=== PATIENT | male | born 1960 ===

== ENCOUNTER 2018-09-22 09:40 | Observation (INO) | payer MEDICAID, MEDICARE ==
[2018-09-22 09:42] VITALS: BMI 54.3
--- NOTE | 2018-09-22 09:56 | ED PDOC ---
Arrival/HPI - General Chief Complaint: Headache Time Seen by Provider: 09/22/18 09:46 Historian: Patient - History of Present Illness Narrative History of Present Illness (Text): 09/22/18 09:57 58 y/o male with PMH of CAD, CHF (s/p ICD) presents to the ED c/o headache x 3 days and worsening SOB for the last few weeks. SOB is worse when lying flat and associated with weight gain and increased peripheral lower extremity edema. H eadache is dull, located in the occipital region, relieved with tylenol. Pt has not taken any medication for headache today. Also c/o bloody drainage from left ear with associated pain for the last day. Pt states he is compliant with his home medications and took them this morning. Denies fever, chills, chest pain, cough, nausea, vomiting, abdominal pain, diarrhea, constipation, vision changes, dizziness, neck pain/stiffness, numbness, weakness, parethesias, or any other associated complaints. PMD: Dr. Mike Orantes Past Medical History - Provider Review Nursing Documentation Reviewed: Yes - Infectious Disease Hx of Infectious Diseases: None - Cardiac Hx Congestive Heart Failure: Yes Hx Hypertension: Yes Hx Pacemaker: Yes (+defibrillator) Hx Peripheral Edema: Yes - Pulmonary Hx Sleep Apnea: Yes (+bipap -- but not using) - Neurological Hx Neurological Disorder: Yes Hx Syncope: Yes - HEENT Hx HEENT Disorder: No - Renal Hx Renal Disorder: No - Endocrine/Metabolic Hx Endocrine Disorders: No - Hematological/Oncological Hx Blood Disorders: No - Integumentary Hx Dermatological Disorder: No Hx Cellulitis: Yes (left leg) - Musculoskeletal/Rheumatological Hx Arthritis: Yes - Gastrointestinal Hx Gall Bladder Disease: Yes - Genitourinary/Gynecological Hx Genitourinary Disorders: No - Psychiatric Hx Psychophysiologic Disorder: No Hx Substance Use: No - Surgical History Hx Cholecystectomy: (STONES REMOVED) Other/Comment: L foot sx. Pacemaker. Vein stripping. Hemorrhoids - Anesthesia Hx Anesthesia: Yes Hx Anesthesia Reactions: No Hx Malignant Hyperthermia: No - Suicidal Assessment Feels Threatened In Home Enviroment: No Family/Social History - Physician Review Nursing Documentation Reviewed: Yes Family/Social History: No Known Family HX Smoking Status: Never Smoked Hx Alcohol Use: Yes (Socially) Frequency of alcohol use: Socially Hx Substance Use: No Allergies/Home Meds Allergies/Adverse Reactions: Allergies No Known Allergies Allergy (Verified 09/22/18 14:12) Home Medications: Home Meds Medication Instructions Recorded Confirmed Aspirin [Ecotrin] 81 mg PO DAILY 08/30/15 09/22/18 Carvedilol [Coreg] 25 mg PO BID 08/30/15 09/22/18 Enalapril Maleate 5 mg PO DAILY 08/30/15 09/22/18 Furosemide [Lasix] 20 mg PO DAILY 08/30/15 09/22/18 Review of Systems - Review of Systems Constitutional: Fatigue. absent: Fevers Eyes: Normal. absent: Vision Changes ENT: Other (left ear bleeding). absent: Hearing Changes, Tinnitus, Sinus Congestion Respiratory: SOB. absent: Cough, Sputum, Wheezing Cardiovascular: Normal. absent: Chest Pain, Palpitations, Syncope Gastrointestinal: Normal. absent: Abdominal Pain, Nausea, Vomiting Genitourinary Male: Normal. absent: Dysuria, Frequency Musculoskeletal: Normal. absent: Back Pain, Neck Pain Skin: Normal. absent: Rash Neurological: Headache. absent: Dizziness, Focal Weakness, Facial Droop, Disequilibrium Endocrine: Normal. absent: Diaphoresis Physical Exam Vital Signs Reviewed: Yes Vital Signs Temp Pulse Resp BP Pulse Ox 09/22/18 09:48 97.3 F L 60 18 189/93 H 95 Temperature: Afebrile Blood Pressure: Hypertensive Pulse: Regular Respiratory Rate: Normal Appearance: Positive for: Well-Appearing, Non-Toxic, Comfortable, Other (Morbidly Obese) Pain Distress: None Mental Status: Positive for: Alert and Oriented X 3 - Systems Exam Head: Present: Atraumatic, Normocephalic Pupils: Present: PERRL Extroacular Muscles: Present: EOMI Conjunctiva: Present: Normal Ears: Present: NORMAL TM, Other (Small amount of dried blood in left canal). No: Erythema, TM Bulging, Fluid, TM Perf Mouth: Present: Moist Mucous Membranes Pharnyx: Present: Normal Neck: Present: Normal Range of Motion. No: Meningeal Signs Respiratory/Chest: Present: Decreased Breath Sounds (bilaterally), Rales (bilateral bases, L>R). No: Respiratory Distress, Accessory Muscle Use Cardiovascular: Present: Regular Rate and Rhythm, Normal S1, S2, Peripheal Pulses Present Abdomen: Present: Normal Bowel Sounds, Other (obese). No: Tenderness, Distention, Peritoneal Signs, Rebound, Guarding Back: Present: Normal Inspection. No: CVA Tenderness Upper Extremity: Present: Normal Inspection, Normal ROM, NORMAL PULSES, Neurovascularly Intact, Capillary Refill < 2s. No: Temperature Abnormalties Lower Extremity: Present: Normal Inspection, Edema (peripheral pitting edema bilaterally to distal lower extremity), Normal ROM, Neurovascularly Intact, Capillary Refill < 2 s. No: Tenderness, Deformity, Temperature Abnormalties Neurological: Present: GCS=15, CN II-XII Intact, Speech Normal, Motor Func Delon ssly Intact, Normal Sensory Function, Gait Normal Skin: Present: Warm, Dry, Normal Color. No: Rashes Psychiatric: Present: Alert, Oriented x 3, Normal Insight, Normal Concentration, Normal Affect, Normal Mood Medical Decision Making ED Course and Treatment: 09/22/18 10:11 Initial Plan: * CBC, CMP * Coags * Troponin * BNP * EKG * CXR * Head CT * Tylenol EKG is ventricular paced at 60bpm, no STEMI CXR shows cardiomegaly and vascular congestion Bloodwork reviewed, unremarkable Head CT shows lucency in basal ganglia of unknown age. MRI brain recommended. Will seek admission for further evaluation. Headache has improved with tylenol. Pt with no focal neuro deficits. 09/22/18 12:35 Spoke with medicine coke oven mason, Dr. Mora, who accepted patient to remote telemetry floor for inpatient observation for further evaluation of abnormal head CT. Pt updated with change in disposition. Resting comfortably in stretcher at this time. - Lab Interpretations Lab Results: 09/22/18 10:20 09/22/18 10:20 Lab Results 09/22/18 11:00: Urine Color Yellow, Urine Appearance Clear, Urine pH 7.5, Ur Specific [place] 1.015, Urine Protein Negative, Urine Glucose (UA) Negative, Urine Ketones Negative, Urine Blood Negative, Urine Nitrate Negative, Urine Bilirubin Negative, Urine Urobilinogen 0.2, Ur Leukocyte Esterase Trace H, Urine RBC Pending, Urine WBC Pending 09/22/18 10:20: PT 12.4, INR 1.10, APTT 34.3 09/22/18 10:20: Sodium 139, Potassium 4.4, Chloride 98, Carbon Dioxide 36 H, Anion Gap 11, BUN 15, Creatinine 0.9, Est GFR ( Amer) > 60, Est GFR (Non-Af Amer) > 60, Random Glucose 117 H, Calcium 9.1, Magnesium 2.0, Total Bilirubin 0.7, AST 24, ALT 28, Alkaline Phosphatase 50, Lactate Dehydrogenase 536, Total Creatine Kinase 210, Troponin I < 0.01, NT-Pro-B Natriuret Pep 229, Total Protein 7.6, Albumin 4.1, Globulin 3.5, Albumin/Globulin Ratio 1.1 09/22/18 10:20: WBC 6.5, RBC 4.87, Hgb 14.6, Hct 44.7, MCV 91.8, MCH 30.0, MCHC 32.7, RDW 13.1, Plt Count 164, MPV 11.8 H, Neut % (Auto) 58.7, Lymph % (Auto) 28.6, [place] % (Auto) 7.4 H, Eos % (Auto) 4.8, Baso % (Auto) 0.5, Lymph # (Auto) 1.9, [place] # (Auto) 0.5, Eos # (Auto) 0.3, Baso # (Auto) 0.03, Absolute Neuts (auto) 3.79 I have reviewed the lab results: Yes - RAD Interpretation Narrative RAD Interpretations (Text): CXR: FINDINGS: LUNGS: No active pulmonary disease. PLEURA: No significant pleural effusion identified, no pneumothorax apparent. CARDIOVASCULAR: No aortic atherosclerotic calcification present. Cardiomegaly suggested. Borderline pulmonary vascular congestion. AICD/pacemaker identified with generator not identified in this exam but likely left pectoralis region with 2 leads identified extending into the heart by a left subclavian approach. OSSEOUS STRUCTURES: No significant abnormalities. VISUALIZED UPPER ABDOMEN: Normal. OTHER FINDINGS: None. IMPRESSION: Cardiomegaly and borderline pulmonary vascular congestion. AICD/pacemaker identified. No definite acute infiltrate bilaterally or pleural effusion. CT Head: FINDINGS: HEMORRHAGE: No intracranial hemorrhage. BRAIN: There is nonspecific lucency seen the left caudate head and medial left basal g anglia as well as left external capsule. While these may represent chronic lacunes, acute or subacute small infarcts are not excluded completely. There is no prior comparison to confirm their prior existence either. Consider follow- up MRI for added characterization. Periventricular lucency is appreciated as well as the bilateral centrum semiovale regions compatible with chronic microangiopathy. No mass effect. No suspicious extra-axial collection with midline brain anatomy normal appearing. VENTRICLES: Unremarkable. No hydrocephalus. CALVARIUM: Unremarkable. PARANASAL SINUSES: Unremarkable as visualized. No significant inflammatory changes. MASTOID AIR CELLS: Unremarkable as visualized. No inflammatory changes. OTHER FINDINGS: None. IMPRESSION: 1. Nonspecific lucencies are seen at the left basal ganglia and external capsule potentially reflecting chronic white matter disease or small chronic infarcts. Follow-up MRI is advised to exclude potential acute or subacute infarcts. 2. Limited chronic microangiopathy reflecting age-related neuro degenerative changes appropriate for the patient's stated age. Curbing Stonecutter: Radiologist - EKG Interpretation EKG Interpretation (Text): 09/22/18 10:18 Rate 60; Ventricular paced rhythm, No STEMI, nonspecific ST/T wave changes Interpreted by ED Physician: Yes Type: 12 lead EKG Comparison: Com.w/previous EKG (07/28/2017) Disposition/Present on Arrival - Present on Arrival Any Indicators Present on Arrival: No History of DVT/PE: No History of Uncontrolled Diabetes: No Urinary Catheter: No History of Decub. Ulcer: No History Surgical Site Infection Following: None - Disposition Have Diagnosis and Disposition been Completed?: Yes Diagnosis: Headache, Abnormal CT scan, head, Shortness of breath Disposition: HOSPITALIZED Disposition Time: 12:35 Patient Plan: Admission Patient Problems: Current Active Problems Problem Status Onset Abnormal CT scan, head Acute Headache Acute Shortness of breath Acute Condition: STABLE
[2018-09-22 10:52] LABS: BASO # 0.03 K/mm3 (0.0-2.0); BASO % 0.5 % (0.0-3.0); EOS # 0.3 (0.0-0.7); EOS % 4.8 % (1.5-5.0); HEMOGLOBIN 14.6 g/dL (14.0-18.0); LYMPH # 1.9 (1.2-3.4); LYMPH % 28.6 % (22.0-35.0); MEAN CELL VOLUME 91.8 fl (80.0-105.0); MEAN CORPUSCULAR HGB CONC 32.7 g/dl (31.0-37.0); MEAN PLATELET VOLUME 11.8 fl (7.0-11.0); MONO # 0.5 (0.1-0.6); MONO % 7.4 % (1.0-6.0); RBC 4.87 10^6/uL (3.5-6.1); RED CELL DISTRIBUTION WIDTH 13.1 % (11.5-14.5); WHITE BLOOD COUNT 6.5 10^3/uL (4.5-11.0)
[2018-09-22 11:01] LABS: INR 1.1; PARTIAL THROMBOPLASTIN TIME 34.3 Seconds (26.9-38.3); PROTHROMBIN TIME 12.4 SECONDS (9.4-12.5)
[2018-09-22 11:02] LABS: ALB/GLOB RATIO 1.1 (1.1-1.8); ALBUMIN 4.1 g/dL (3.0-4.8); ALT/SGPT 28 U/L (7-56); AST/SGOT 24 U/L (17-59); BLOOD UREA NITROGEN 15 mg/dL (7-21); CALCIUM 9.1 mg/dL (8.4-10.5); GFR NON-AFRICAN AMERICAN > 60
[2018-09-22 11:14] LABS: B-TYPE NATRIURETIC PEPTIDE 229 pg/mL (0-450); TROPONIN I < 0.01 ng/mL
[2018-09-22 11:30] LABS: PH,URINE 7.5 (4.7-8.0); URINE BILIRUBIN NEGATIVE (NEGATIVE); URINE BLOOD NEGATIVE (NEGATIVE); URINE GLUCOSE (UA) NEGATIVE (NEGATIVE); URINE LEUKOCYTE ESTERASE TRACE Leu/uL (NEGATIVE); URINE PROTEIN NEGATIVE mg/dL (<30 mg/dL); URINE UROBILINOGEN 0.2 E.U./dL (<1 E.U./dL)
--- NOTE | 2018-09-22 11:37 | CT ---
Date of service: 09/22/2018 PROCEDURE: CT HEAD WITHOUT CONTRAST. HISTORY: headache COMPARISON: None available. TECHNIQUE: Axial computed tomography images were obtained through the head/brain without intravenous contrast. Radiation dose: Total exam DLP = 1121.93 mGy-cm. This CT exam was performed using one or more of the following dose reduction techniques: Automated exposure control, adjustment of the mA and/or kV according to patient size, and/or use of iterative reconstruction technique. FINDINGS: HEMORRHAGE: No intracranial hemorrhage. BRAIN: There is nonspecific lucency seen the left caudate head and medial left basal ganglia as well as left external capsule. While these may represent chronic lacunes, acute or subacute small infarcts are not excluded completely. There is no prior comparison to confirm their prior existence either. Consider follow-up MRI for added characterization. Periventricular lucency is appreciated as well as the bilateral centrum semiovale regions compatible with chronic microangiopathy. No mass effect. No suspicious extra-axial collection with midline brain anatomy normal appearing. VENTRICLES: Unremarkable. No hydrocephalus. CALVARIUM: Unremarkable. PARANASAL SINUSES: Unremarkable as visualized. No significant inflammatory changes. MASTOID AIR CELLS: Unremarkable as visualized. No inflammatory changes. OTHER FINDINGS: None. IMPRESSION: 1. Nonspecific lucencies are seen at the left basal ganglia and external capsule potentially reflecting chronic white matter disease or small chronic infarcts. Follow-up MRI is advised to exclude potential acute or subacute infarcts. 2. Limited chronic microangiopathy reflecting age-related neuro degenerative changes appropriate for the patient's stated age.
[2018-09-22 11:41] LABS: URINE APPEARANCE CLEAR (CLEAR); URINE COLOR YELLOW (YELLOW)
[2018-09-22 11:55] LABS: URINE BACTERIA MOD /hpf; URINE EPITHELIAL CELLS 0 - 2 /hpf (0-5); URINE RBC 0 - 2 /hpf (0-2)
--- NOTE | 2018-09-22 12:12 | RAD ---
Date of service: 09/22/2018 HISTORY: SOB COMPARISON: No prior. TECHNIQUE: 1 view obtained. FINDINGS: LUNGS: No active pulmonary disease. PLEURA: No significant pleural effusion identified, no pneumothorax apparent. CARDIOVASCULAR: No aortic atherosclerotic calcification present. Cardiomegaly suggested. Borderline pulmonary vascular congestion. AICD/pacemaker identified with generator not identified in this exam but likely left pectoralis region with 2 leads identified extending into the heart by a left subclavian approach. OSSEOUS STRUCTURES: No significant abnormalities. VISUALIZED UPPER ABDOMEN: Normal. OTHER FINDINGS: None. IMPRESSION: Cardiomegaly and borderline pulmonary vascular congestion. AICD/pacemaker identified. No definite acute infiltrate bilaterally or pleural effusion.
--- NOTE | 2018-09-22 15:17 | CP.PCM.HP ---
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 Paper ports that headache is a pounding sensation originating in the front of his head progressing to the back of his head denies any nausea, vomiting, no lightheadedness, dizziness, blurry vision. He does not have any complaints of weakness or sensory alteration, does not report any slurred speech. He does report some shortness of breath at this time, however upon further evaluation the patient reports that his shortness of breath is at baseline. He denies any chest pain, palpitations, abdominal pain, nausea, vomiting, diarrhea, constipation, urinary changes. Remainder 12 system ROS is otherwise negative. 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 Iglesias Pulm: Dr. Godwin PMH: As above PSH: AICD Placement, L ankle, Gallstone/Questionable Pam, Hemmorrhoid Social: Denies smoking, ETOH - 1L Liquor/ 12pk on weekends, denies illicit drug use FamHx: Father - CAD - ; Mother - Aspiration - ; Sister - Lupus ALL: NKDA Home Rx: Aspirin [Ecotrin] 81 mg PO DAILY 08/30/15 Carvedilol [Coreg] 25 mg PO BID 08/30/15 Enalapril Maleate 5 mg PO DAILY 08/30/15 Furosemide [Lasix] 20 mg PO DAILY 08/30/15 Present on Admission - Present on Admission Any Indicators Present on Admission: No Review of Systems - Review of Systems All systems: reviewed and no additional remarkable complaints except Review of Systems: As per HPI Past Patient History - Infectious Disease Hx of Infectious Diseases: None - Past Medical History & Family History Past Medical History?: Yes - Past Social History Smoking Status: Never Smoked - CARDIAC Hx Congestive Heart Failure: Yes Hx Hypertension: Yes Hx Pacemaker: Yes (+defibrillator) Hx Peripheral Edema: Yes - PULMONARY Hx Sleep Apnea: Yes (+bipap -- but not using) - NEUROLOGICAL Hx Neurological Disorder: Yes Hx Syncope: Yes - HEENT Hx HEENT Problems: No - RENAL Hx Chronic Kidney Disease: No - ENDOCRINE/METABOLIC Hx Endocrine Disorders: No - HEMATOLOGICAL/ONCOLOGICAL Hx Blood Disorders: No - INTEGUMENTARY Hx Dermatological Problems: No Hx Cellulitis: Yes (left leg) - MUSCULOSKELETAL/RHEUMATOLOGICAL Hx Arthritis: Yes - GASTROINTESTINAL Hx Gall Bladder Disease: Yes - GENITOURINARY/GYNECOLOGICAL Hx Genitourinary Disorders: No - PSYCHIATRIC Hx Psychophysiologic Disorder: No Hx Substance Use: No - SURGICAL HISTORY Hx Cholecystectomy: (STONES REMOVED) Other/Comment: L foot sx. Pacemaker. Vein stripping. Hemorrhoids - ANESTHESIA Hx Anesthesia: Yes Hx Anesthesia Reactions: No Hx Malignant Hyperthermia: No Meds Home Medications: Home Medication List Medication Instructions Recorded Confirmed Type Aspirin [Ecotrin] 81 mg PO DAILY #30 tabec 09/23/18 Rx Atorvastatin [Lipitor] 40 mg PO DIN #30 tab 09/23/18 Rx Carvedilol [Coreg] 25 mg PO BID #60 tab 09/23/18 Rx Furosemide [Lasix] 40 mg PO BID #60 tab 09/23/18 Rx Lisinopril [Zestril] 20 mg PO DAILY #30 tab 09/23/18 Rx Spironolactone [Aldactone] 25 mg PO BID #60 tab 09/23/18 Rx Allergies/Adverse Reactions: Allergies Allergy/AdvReac Type Severity Reaction Status Date / Time No Known Allergies Allergy Verified 09/22/18 14:12 Physical Exam - Constitutional Appears: Well, Non-toxic, No Acute Distress - Head Exam Head Exam: ATRAUMATIC, NORMOCEPHALIC - Eye Exam Eye Exam: EOMI, PERRL. absent: Scleral icterus - Respiratory Exam Respiratory Exam: NORMAL BREATHING PATTERN Additional comments: Diminished breath sounds bibasilar - Cardiovascular Exam Cardiovascular Exam: RRR, +S1, +S2 - GI/Abdominal Exam GI & Abdominal Exam: Normal Bowel Sounds, Soft. absent: Tenderness - Extremities Exam Extremities exam: Positive for: pedal pulses present Additional comments: 3+ Edema pitting bl - Neurological Exam Neurological exam: Alert, CN II-XII Intact, Oriented x3 Additional comments: 5/5 UE + LE BL - Psychiatric Exam Psychiatric exam: Normal Affect, Normal Mood - Skin Skin Exam: Dry, Intact, Normal Color, Warm Results - Vital Signs Recent Vital Signs: Last Vital Signs Temp 97.3 F L 09/22/18 09:48 Pulse 66 09/22/18 13:22 Resp 18 09/22/18 13:22 BP 155/70 H 09/22/18 13:22 Pulse Ox 96 09/22/18 13:22 - Labs Result Diagrams: 09/22/18 10:20 09/22/18 10:20 Labs: Laboratory Results - last 24 hr 09/22/18 09/22/18 09/22/18 10:20 10:20 10:20 WBC 6.5 RBC 4.87 Hgb 14.6 Hct 44.7 MCV 91.8 MCH 30.0 MCHC 32.7 RDW 13.1 Plt Count 164 MPV 11.8 H Neut % (Auto) 58.7 Lymph % (Auto) 28.6 [place] % (Auto) 7.4 H Eos % (Auto) 4.8 Baso % (Auto) 0.5 Lymph # (Auto) 1.9 [place] # (Auto) 0.5 Eos # (Auto) 0.3 Baso # (Auto) 0.03 Absolute Neuts (auto) 3.79 PT 12.4 INR 1.10 APTT 34.3 Sodium 139 Potassium 4.4 Chloride 98 Carbon Dioxide 36 H Anion Gap 11 BUN 15 Creatinine 0.9 Est GFR ( Amer) > 60 Est GFR (Non-Af Amer) > 60 Random Glucose 117 H Calcium 9.1 Magnesium 2.0 Total Bilirubin 0.7 AST 24 ALT 28 Alkaline Phosphatase 50 Lactate Dehydrogenase 536 Total Creatine Kinase 210 Troponin I < 0.01 NT-Pro-B Natriuret Pep 229 Total Protein 7.6 Albumin 4.1 Globulin 3.5 Albumin/Globulin Ratio 1.1 Urine Color Urine Appearance Urine pH Ur Specific [place] Urine Protein Urine Glucose (UA) Urine Ketones Urine Blood Urine Nitrate Urine Bilirubin Urine Urobilinogen Ur Leukocyte Esterase Urine RBC Urine WBC Ur Epithelial Cells Urine Bacteria 09/22/18 11:00 WBC RBC Hgb Hct MCV MCH MCHC RDW Plt Count MPV Neut % (Auto) Lymph % (Auto) [place] % (Auto) Eos % (Auto) Baso % (Auto) Lymph # (Auto) [place] # (Auto) Eos # (Auto) Baso # (Auto) Absolute Neuts (auto) PT INR APTT Sodium Potassium Chloride Carbon Dioxide Anion Gap BUN Creatinine Est GFR ( Amer) Est GFR (Non-Af Amer) Random Glucose Calcium Magnesium Total Bilirubin AST ALT Alkaline Phosphatase Lactate Dehydrogenase Total Creatine Kinase Troponin I NT-Pro-B Natriuret Pep Total Protein Albumin Globulin Albumin/Globulin Ratio Urine Color Yellow Urine Appearance Clear Urine pH 7.5 Ur Specific [place] 1.015 Urine Protein Negative Urine Glucose (UA) Negative Urine Ketones Negative Urine Blood Negative Urine Nitrate Negative Urine Bilirubin Negative Urine Urobilinogen 0.2 Ur Leukocyte Esterase Trace H Urine RBC 0 - 2 Urine WBC 2 - 5 Ur Epithelial Cells 0 - 2 Urine Bacteria Mod Assessment & Plan - Assessment and Plan (Free Text) Assessment: Patient is a 58-year-old male with a past medical history of CAD, CHF, status post AICD placement, obstructive sleep apnea, presenting to [facility] w/ CC Of headaches. Upon admission admission patient is noted to be hypertensive and sob. Admitted for hypertensive urgency, and shortness of breath. Plan: HTN Urgency: BP: 190/90 upon ED presentation; 155/70 upon evaluation Will monitor on home meds and adjust accordingly; PRN medications on board as below Lisinopril (Zestril) 5 mg PO DAILY [facility] Carvedilol (Coreg) 25 mg PO BID [facility] Hydralazine HCl (Apresoline) 5 mg IVP Q4H PRN Trop negative Monitor BP Cardiology consulted, appreciate reccs Headache Most likely 2/[address] 09/22/18 10:07 IMPRESSION: 1. Nonspecific lucencies are seen at the left basal ganglia and external capsule potentially reflecting chronic white matter disease or small chronic infarcts. Follow-up MRI is advised to exclude potential acute or subacute infarcts. 2. Limited chronic microangiopathy reflecting age-related neuro degenerative changes appropriate for the patient's stated age. No FND on exam NIHSS score = 0 Given that patient denies pmh of stroke; will consult neurology for further evaluation SOB: CHF vs ISABELLE Furosemide (Lasix) 40 mg IVP Q12 [facility] Chest X-Ray 09/22/18 IMPRESSION: Cardiomegaly and borderline pulmonary vascular congestion. AICD/pacemaker identified. No definite acute infiltrate bilaterally or pleural effusion. BIPAP NIGHTLY Hx CHF: Furosemide (Lasix) 40 mg IVP Q12 [facility] BNP WNL ECHO pending Cardiology Dr. Martinez Consulted Hyperglycemia Elevated BG on admission A1C pending Hx CAD: Aspirin (Ecotrin) 81 mg PO DAILY [facility] Atorvastatin Calcium (Lipitor) 40 mg PO DIN [facility] Lipid panel pending TSH pending GI/DVT PPX: Protonix/Lovenox Patient was seen, evaluated and discussed w/ attending Dr. 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 - Date & Time Date: 09/22/18 Time: 16:43 <Scott Castañeda - Last Filed: 09/23/18 15:43> Results - Vital Signs Recent Vital Signs: Last Vital Signs Temp 97.4 F L 09/23/18 06:00 Pulse 64 09/23/18 14:00 Resp 20 09/23/18 06:00 BP 125/78 09/23/18 13:30 Pulse Ox 93 L 09/23/18 06:00 - Labs Result Diagrams: 09/23/18 07:15 09/23/18 07:15 Labs: Laboratory Results - last 24 hr 09/22/18 09/22/18 09/22/18 10:20 10:20 10:20 WBC RBC Hgb Hct MCV MCH MCHC RDW Plt Count MPV Neut % (Auto) Lymph % (Auto) [place] % (Auto) Eos % (Auto) Baso % (Auto) Lymph # (Auto) [place] # (Auto) Eos # (Auto) Baso # (Auto) Absolute Neuts (auto) Sodium Potassium Chloride Carbon Dioxide Anion Gap BUN Creatinine Est GFR ( Amer) Est GFR (Non-Af Amer) POC Glucose (mg/dL) Random Glucose Hemoglobin A1c 6.8 H Calcium Total Bilirubin AST ALT Alkaline Phosphatase Total Protein Albumin Globulin Albumin/Globulin Ratio Triglycerides 131 Cholesterol 142 LDL Cholesterol Direct 81 HDL Cholesterol 29 TSH 3rd Generation 1.15 09/22/18 09/23/18 09/23/18 10:23 07:15 07:15 WBC 6.3 RBC 4.95 Hgb 14.7 Hct 45.5 MCV 91.9 MCH 29.7 MCHC 32.3 RDW 13.4 Plt Count 170 MPV 12.2 H Neut % (Auto) 59.0 Lymph % (Auto) 22.6 [place] % (Auto) 13.3 H Eos % (Auto) 4.3 Baso % (Auto) 0.8 Lymph # (Auto) 1.4 [place] # (Auto) 0.8 H Eos # (Auto) 0.3 Baso # (Auto) 0.05 Absolute Neuts (auto) 3.69 Sodium 138 Potassium 3.9 Chloride 98 Carbon Dioxide 32 Anion Gap 12 BUN 17 Creatinine 1.0 Est GFR ( Amer) > 60 Est GFR (Non-Af Amer) > 60 POC Glucose (mg/dL) 160 H Random Glucose 131 H Hemoglobin A1c Calcium 9.0 Total Bilirubin 1.0 AST 26 ALT 24 Alkaline Phosphatase 51 Total Protein 7.8 Albumin 3.8 Globulin 4.0 Albumin/Globulin Ratio 1.0 L Triglycerides Cholesterol LDL Cholesterol Direct HDL Cholesterol TSH 3rd Generation Attending/Attestation - Attestation I have personally seen and examined this patient.: Yes I have fully participated in the care of the patient.: Yes I have reviewed all pertinent clinical information: Yes Notes (Text): 09/23/18 15:36 Attending note; Patient seen and examined with resident in ER. Patient is alert and awake. Complaining of mild headache. Denies any nausea, vomiting. Denies any urinary, bowel symptoms. denies any chest pain. complaining of shortness of breath on exertion. Complaining of lower extremity swelling. Denies any redness. Patient is a 58-year-old male with a past medical history of CAD, CHF, status post AICD placement for sudden cardiac arrest in the past, obstructive sleep apnea, presenting to [facility] on 09/22 With complaints of headache ongoing for the past 3 to 4 days. 1. Headache; CT head Nonspecific lucencies are seen at the left basal ganglia and external capsule potentially reflecting chronic white matter disease or small chronic infarcts. No focal neurological deficit noted. Neurology evaluation requested. Echocardiogram and carotid Doppler ordered. 2. Obstructive sleep apnea; Patient is not using BiPAP at home. Advised the importance of BiPAP to avoid pulmonary hypertension chronic headaches. 3. Hypertension; continue Coreg. Started on IV Lasix. Echocardiogram ordered. EKG showed paced ventricular rhythm. 4. Chronic venous congestion stasis; lower extremity swelling noted. No erythema or redness. 5. Obesity; diet, exercise and weight reduction advised. 6. Noncompliance with medication; medication compliance insisted in detail. Upon discharge patient will follow up with PMD Dr. Mike Orantes. Patient will follow up with cardiology Dr. Masterson. Case discussed with cardiology in detail .
[2018-09-22 15:49] LABS: HDL CHOLESTEROL 29 mg/dL (29-60)
[2018-09-22 16:11] LABS: LDL CHOLESTEROL 81 mg/dL (0-129)
[2018-09-22] MEDS ORDERED: Pneumococcal 23-Valent Vaccine IM ONE (17:56)
[2018-09-22] MEDS ORDERED: Influenza Vaccine 60 mcg/0.5 mL SYR (4YR UP) IM ONE (17:56)
[2018-09-22] MEDS: Enoxaparin 40 mg Syringe SC SCH (18:02)
--- NOTE | 2018-09-22 18:14 | US ---
Date of service: 09/22/2018 PROCEDURE: Duplex ultrasound of the carotid and vertebral arteries. HISTORY: r/o stenosis COMPARISON: None available. TECHNIQUE: Grayscale and duplex Doppler evaluation of the cervical carotid and vertebral arteries were performed. The common carotid, carotid bifurcations and cervical ICA and proximal ECA were evaluated. The vertebral arteries were evaluated for gross patency and direction. FINDINGS: There are calcified atherosclerotic plaques in the carotid bulbs and proximal internal carotid arteries. RIGHT CAROTID ARTERIES: Common Carotid Artery: Normal. Maximal flow velocity of 73.6 cm/s. Carotid Bifurcation: Normal. Internal Carotid Artery:Normal. Maximal flow velocity of 57.4 cm/s. External Carotid Artery (proximal branches): Normal. Maximal flow velocity of 95.6 cm/s. ICA/CCA Ratio: 0.8 LEFT CAROTID ARTERIES: Common Carotid Artery: Normal. Maximal flow velocity of 89.1 cm/s. Carotid Bifurcation: Normal. Internal Carotid Artery:Normal. Maximal flow velocity of 72.5 cm/s. External Carotid Artery (proximal branches): Normal. Maximal flow velocity of 140.1 cm/s. ICA/CCA Ratio: 0.8 VERTEBRAL ARTERIES: Right Vertebral Artery: Patent. Antegrade flow. Left Vertebral Artery: Patent. Antegrade flow. OTHER FINDINGS: No atherosclerotic calcification present IMPRESSION: 1. No evidence of hemodynamically significant stenosis in the internal carotid arteries by peak systolic velocity criteria. 2. Elevated peak systolic velocities in the external carotid arteries, worse on the left. 3. Patent bilateral vertebral arteries with antegrade flow.
--- NOTE | 2018-09-22 19:08 | CARD ---
APPROVED REPORT Date of service: 09/22/2018 EKG Measurement Heart [id number] <Conclusion> A-V sequential pacemaker with normal function
[2018-09-23 00:17] VITALS: RESP 20
--- NOTE | 2018-09-23 05:38 | CON ---
DATE OF CONSULTATION: 09/22/2018 CARDIOLOGY CONSULTATION REASON FOR CONSULTATION: Followup cardiac evaluation, history of obstructive sleep apnea, history of AICD, history of nonischemic cardiomyopathy, admitted with uncontrolled hypertension and headache. Cardiac evaluation. BRIEF CLINICAL HISTORY: A 58-year-old morbidly obese male with past medical history significant for nonischemic cardiomyopathy, status post AICD, status post cardiac arrest on 08/13/2014, history of AICD, history of cardiac catheterization at that time by Dr. Masterson, found to be in nonobstructive coronary artery disease, history of morbid obesity, sleep apnea, hypertension, who came in to the [facility], who is being followed by Dr. Abhishek Masterson for Cardiology and Dr. Iglesias for pacemaker, came in because of headache and uncontrolled hypertension, and the blood pressure is not controlled, so the patient came in to the emergency room. Denies any chest pain. Denies any shortness of breath. Denies any palpitation. Admitting blood pressure is 189/93. PAST MEDICAL HISTORY: Significant for obstructive sleep apnea, morbid obesity, nonischemic Cardiolite stress test, status post AICD, hypertension. PAST SURGICAL HISTORY: Significant for AICD [place] [address] Iglesias, stone removed from the gallbladder, but according to him, the gallbladder was left in place, questionable. SOCIAL HISTORY: He denies any smoking, but drinks alcohol on weekend, 12 packs, and some hard liquor as well. FAMILY HISTORY: Significant for coronary artery disease. Father with history of end-stage renal disease and coronary artery disease. Recent cardiac workup as follows. The patient had an echocardiography done in [facility] dated 07/29/2016, that showed ejection fraction of 55-60%, diastolic dysfunction, mild RV systolic pressure reported 25. The patient had a cardiac catheterization on 07/16/2015, by Dr. Chopra. Dilated cardiomyopathy at that time and no significant disease was noted. Left main large caliber vessels normal, LAD and circumflex unremarkable reported, dated 10/11/2014. Another echo read by Dr. Abhishek Masterson dated 10/13/2014, ejection fraction reported 25%. The patient has a history of sudden cardiac arrest, collapse, survivor of sudden cardiac , who was watching the game in a stadium, and the patient collapsed on the floor, CPR was done for 10 minutes, EMT arrived, and then the patient was defibrillated, and was taken to the [facility], and then the patient had a cardiac cath and that mentioned no significant CAD, dilated cardiomyopathy, and decreased LV function noted and then Dr. Iglesias was involved, and the patient had defibrillator done. Date of the cath was 10/11/2014. CURRENT MEDICATIONS: The patient is taking Lasix 20 mg daily, enalapril 5, carvedilol, and aspirin. REVIEW OF SYSTEMS: As per HPI. PHYSICAL EXAMINATION: VITAL SIGNS: Height of the patient is 5 feet 8 inches, weight of the patient is 357 pounds, body mass index 54.3 kg per meter square. Vital signs, temperature afebrile, heart 64, blood pressure, 156/89. HEENT: PERRLA. Extraocular muscles intact. NECK: Supple. No carotid bruit or thyromegaly. CHEST: Clear to auscultation. HEART: S1 and S2 regular. ABDOMEN: Soft. EXTREMITIES: Clubbing and cyanosis negative. LABORATORY DATA: EKG shows V-paced rhythm, but underlying normal sinus. WBC 6.5, hemoglobin 14.5, hematocrit 44.7, platelet count 164. Chemistry 139, potassium 4.4, chloride 98, carbon dioxide 36, anion gap of 11, BUN 15, and creatinine 0.1. IMPRESSION: A 58-year-old morbidly obese male with past medical history significant for hypertension, hyperlipidemia, nonischemic cardiomyopathy, cardiac catheterization on 10/11/2014, and normal coronaries, dilated cardiomyopathy, status post automatic implantable cardioverter defibrillator was done. Ejection fraction 25%, being followed by Dr. Chopra, admitted with headache and uncontrolled hypertension. Admitting blood pressure 189/90. RECOMMENDATIONS: Aggressive control of blood pressure, repeat echo, agree to assess LV function, lipid profile, TSH, hemoglobin A1c. Further recommendation with hospital course. If remained stable, possible discharge and follow up with Dr. Masterson. Shivam Martinez MD
[2018-09-23] MEDS ORDERED: Pantoprazole 40 mg EC Tab PO SCH (06:00)
[2018-09-23 08:03] LABS: BASO # 0.05 K/mm3 (0.0-2.0); BASO % 0.8 % (0.0-3.0); EOS # 0.3 (0.0-0.7); EOS % 4.3 % (1.5-5.0); HEMOGLOBIN 14.7 g/dL (14.0-18.0); LYMPH # 1.4 (1.2-3.4); LYMPH % 22.6 % (22.0-35.0); MEAN CELL VOLUME 91.9 fl (80.0-105.0); MEAN CORPUSCULAR HEMOGLOBIN 29.7 pg (25.0-35.0); MEAN CORPUSCULAR HGB CONC 32.3 g/dl (31.0-37.0); MEAN PLATELET VOLUME 12.2 fl (7.0-11.0); MONO # 0.8 (0.1-0.6); MONO % 13.3 % (1.0-6.0); RBC 4.95 10^6/uL (3.5-6.1); RED CELL DISTRIBUTION WIDTH 13.4 % (11.5-14.5); WHITE BLOOD COUNT 6.3 10^3/uL (4.5-11.0)
[2018-09-23 08:09] VITALS: TEMP 97.4; O2SAT 93
[2018-09-23 08:23] LABS: ALBUMIN 3.8 g/dL (3.0-4.8); ALT/SGPT 24 U/L (7-56); AST/SGOT 26 U/L (17-59); BLOOD UREA NITROGEN 17 mg/dL (7-21); GFR NON-AFRICAN AMERICAN > 60
--- NOTE | 2018-09-23 08:36 | CP.PCM.PN ---
Subjective - Date & Time of Evaluation Date of Evaluation: 09/23/18 Time of Evaluation: 06:45 - Subjective Subjective: Awake, alert, no distress Reason for consultation and follow up: Follow up history of AICD, sleep apnea, history of non ischemic cardiomyopathy, admitted for uncontrolled hypertension Seen and examined by me and Dr. Martinez Objective - Vital Signs/Intake and Output Vital Signs (last 24 hours): Temp Pulse Resp BP Pulse Ox 97.4 F L 63 20 161/93 H 93 L 09/23/18 06:00 09/23/18 06:31 09/23/18 06:00 09/23/18 06:31 09/23/18 06:00 Intake and Output: 09/23/18 09/23/18 06:59 18:59 Intake Total 480 Balance 480 - Medications Medications: Current Medications Aspirin (Ecotrin) 81 mg PO DAILY [facility] Last Admin: 09/22/18 15:39 Dose: 81 mg Atorvastatin Calcium (Lipitor) 40 mg PO DIN [facility] Last Admin: 09/22/18 18:02 Dose: 40 mg Carvedilol (Coreg) 25 mg PO BID [facility] Last Admin: 09/22/18 18:00 Dose: 25 mg Enoxaparin Sodium (Lovenox) 40 mg SC DAILY [facility]; Protocol Last Admin: 09/22/18 18:02 Dose: 40 mg Furosemide (Lasix) 40 mg IVP Q12 [facility] Last Admin: 09/22/18 21:08 Dose: 40 mg Hydralazine HCl (Apresoline) 5 mg IVP Q4H PRN PRN Reason: Systolic >150 Last Admin: 09/23/18 06:31 Dose: 5 mg Lisinopril (Zestril) 20 mg PO DAILY [facility] Pantoprazole Sodium (Protonix Ec Tab) 40 mg PO 0600 [facility] Last Admin: 09/23/18 05:13 Dose: 40 mg Spironolactone (Aldactone) 25 mg PO BID [facility] - Labs Labs: 09/23/18 07:15 09/23/18 07:15 PT 12.4 SECONDS (9.4-12.5) 09/22/18 10:20 INR 1.10 09/22/18 10:20 APTT 34.3 Seconds (26.9-38.3) 09/22/18 10:20 - Constitutional Appears: Non-toxic, No Acute Distress - Head Exam Head Exam: NORMAL INSPECTION, NORMOCEPHALIC - Eye Exam Eye Exam: Normal appearance Pupil Exam: NORMAL ACCOMODATION - ENT Exam ENT Exam: Mucous Membranes Moist, Normal Exam - Respiratory Exam Respiratory Exam: Decreased Breath Sounds, Clear to Ausculation Bilateral, NORMAL BREATHING PATTERN - Cardiovascular Exam Cardiovascular Exam: +S1, +S2 Additional comments: AICD/PPM V pacing - GI/Abdominal Exam GI & Abdominal Exam: Soft, Normal Bowel Sounds - Extremities Exam Extremities Exam: Full ROM, Normal Capillary Refill - Neurological Exam Neurological Exam: Alert, Awake, Oriented x3 - Psychiatric Exam Psychiatric exam: Normal Affect, Normal Mood - Skin Skin Exam: Dry, Normal Color, Warm Assessment and Plan - Assessment and Plan (Free Text) Assessment: A 58 year old male obese who came in to the ER due to shortness of breath and headache. History of non ischemic cardiomyopathy,status post cardiac arrest on 08/13/14, post AICD/PPM. non obstructive coronary artery disease, sleep apnea,hypertension. He follows up with Dr. Masterson and Dr. Iglesias for pacemaker. In ER found to have uncontrolled blood pressure. Aggressive control of hypertension. Plan: No distress Blood pressure improved Hydralazine PRN On ASA 81 mg daily,Lipitor 40 mg daily,Coreg 25 mg BID Lasix 40 mg BID, Lisinopril 20 mg daily,Aldactone 25 mg BID, Conrtinue current treatment Continue current medications Weight reduction/lifestyle modification Will follow up Plan and treatment discussed with Dr. Martinez
--- NOTE | 2018-09-23 08:53 | CP.PCM.CON ---
<Danny Orantes - Last Filed: 09/23/18 14:30> History of Present Illness - History of Present Illness History of Present Illness: Danny Orantes PGY2 Neurology Consult Note for Dr. Mcmanus Consulted by: Dr. Castañeda 58-year-old male with a past medical history of CAD, CHF, status post AICD placement, obstructive sleep apnea, presenting to [facility] on 09/22 With complaints of headache located throught his head which improves with NSAID use. Denies aura, photosensitivity, drainage from eye or any precipitating factors. Patient was found to be hypertensive over 180- systolic, states his blood pressure has been elevated for a while now. Denies nausea, vomiting, no lightheadedness, dizziness, blurry vision, slurred speech, weakness. Remainder 12 system ROS is otherwise negative. ICD: PARADYM RF MANAGER RN [id number] PMD: Mike Orantes Cardio: Dr. Iglesias Pulm: Dr. Godwin PMH: As above PSH: AICD Placement, L ankle, Gallstone/Questionable Pam, Hemmorrhoid Social: Denies smoking, ETOH - 1L Liquor/ 12pk on weekends, denies illicit drug use FamHx: Father - CAD - ; Mother - Aspiration - ; Sister - Lupus ALL: NKDA Review of Systems - Cardiovascular Cardiovascular: Dyspnea - Musculoskeletal Musculoskeletal: absent: Limited Range of Motion, Muscle Weakness, Neck Pain, Numbness, Tingling - Neurological Neurological: Headaches. absent: Abnormal Gait, Abnormal Hearing, Abnormal Speech, Disequilibrium, Dizziness, Numbness, Focal Weakness, Frequent Falls, Loss of Vision, Tingling, Tremor, Vertigo, Weakness Past Patient History - Infectious Disease Hx of Infectious Diseases: None - Past Medical History & Family History Past Medical History?: Yes - Past Social History Smoking Status: Never Smoked - CARDIAC Hx Congestive Heart Failure: Yes Hx Hypertension: Yes Hx Pacemaker: Yes (+defibrillator) Hx Peripheral Edema: Yes - PULMONARY Hx Sleep Apnea: Yes (+bipap -- but not using) - NEUROLOGICAL Hx Neurological Disorder: Yes Hx Syncope: Yes - HEENT Hx HEENT Problems: No - RENAL Hx Chronic Kidney Disease: No - ENDOCRINE/METABOLIC Hx Endocrine Disorders: No - HEMATOLOGICAL/ONCOLOGICAL Hx Blood Disorders: No - INTEGUMENTARY Hx Dermatological Problems: No Hx Cellulitis: Yes (left leg) - MUSCULOSKELETAL/RHEUMATOLOGICAL Hx Arthritis: Yes - GASTROINTESTINAL Hx Gall Bladder Disease: Yes - GENITOURINARY/GYNECOLOGICAL Hx Genitourinary Disorders: No - PSYCHIATRIC Hx Psychophysiologic Disorder: No Hx Substance Use: No - SURGICAL HISTORY Hx Cholecystectomy: (STONES REMOVED) Other/Comment: L foot sx. Pacemaker. Vein stripping. Hemorrhoids - ANESTHESIA Hx Anesthesia: Yes Hx Anesthesia Reactions: No Hx Malignant Hyperthermia: No Meds Home Medications: Home Medication List Medication Instructions Recorded Confirmed Type Aspirin [Ecotrin] 81 mg PO DAILY #30 tabec 09/23/18 Rx Atorvastatin [Lipitor] 40 mg PO DIN #30 tab 09/23/18 Rx Carvedilol [Coreg] 25 mg PO BID #60 tab 09/23/18 Rx Furosemide [Lasix] 40 mg PO BID #60 tab 09/23/18 Rx Lisinopril [Zestril] 20 mg PO DAILY #30 tab 09/23/18 Rx Spironolactone [Aldactone] 25 mg PO BID #60 tab 09/23/18 Rx Allergies/Adverse Reactions: Allergies Allergy/AdvReac Type Severity Reaction Status Date / Time No Known Allergies Allergy Verified 09/22/18 14:12 - Medications Medications: Current Medications Aspirin (Ecotrin) 81 mg PO DAILY [facility] Last Admin: 09/22/18 15:39 Dose: 81 mg Atorvastatin Calcium (Lipitor) 40 mg PO DIN [facility] Last Admin: 09/22/18 18:02 Dose: 40 mg Carvedilol (Coreg) 25 mg PO BID [facility] Last Admin: 09/22/18 18:00 Dose: 25 mg Enoxaparin Sodium (Lovenox) 40 mg SC DAILY [facility]; Protocol Last Admin: 09/22/18 18:02 Dose: 40 mg Furosemide (Lasix) 40 mg IVP Q12 [facility] Last Admin: 09/22/18 21:08 Dose: 40 mg Hydralazine HCl (Apresoline) 5 mg IVP Q4H PRN PRN Reason: Systolic >150 Last Admin: 09/23/18 06:31 Dose: 5 mg Lisinopril (Zestril) 20 mg PO DAILY [facility] Pantoprazole Sodium (Protonix Ec Tab) 40 mg PO 0600 [facility] Last Admin: 09/23/18 05:13 Dose: 40 mg Spironolactone (Aldactone) 25 mg PO BID [facility] Physical Exam - Constitutional Appears: No Acute Distress Additional comments: obese - Head Exam Head Exam: ATRAUMATIC, NORMAL INSPECTION, NORMOCEPHALIC - Eye Exam Eye Exam: EOMI, Normal appearance, PERRL - ENT Exam ENT Exam: Mucous Membranes Moist - Neurological Exam Neurological exam: Alert, CN II-XII Intact, Normal Gait, Oriented x3, Reflexes Normal Results - Vital Signs Recent Vital Signs: Last Vital Signs Temp 97.4 F L 09/23/18 06:00 Pulse 63 09/23/18 06:31 Resp 20 09/23/18 06:00 BP 161/93 H 09/23/18 06:31 Pulse Ox 93 L 09/23/18 06:00 - Labs Result Diagrams: 09/23/18 07:15 09/23/18 07:15 Labs: Laboratory Results - last 24 hr 09/22/18 09/22/18 09/22/18 10:20 10:20 10:20 WBC 6.5 RBC 4.87 Hgb 14.6 Hct 44.7 MCV 91.8 MCH 30.0 MCHC 32.7 RDW 13.1 Plt Count 164 MPV 11.8 H Neut % (Auto) 58.7 Lymph % (Auto) 28.6 [place] % (Auto) 7.4 H Eos % (Auto) 4.8 Baso % (Auto) 0.5 Lymph # (Auto) 1.9 [place] # (Auto) 0.5 Eos # (Auto) 0.3 Baso # (Auto) 0.03 Absolute Neuts (auto) 3.79 PT 12.4 INR 1.10 APTT 34.3 Sodium 139 Potassium 4.4 Chloride 98 Carbon Dioxide 36 H Anion Gap 11 BUN 15 Creatinine 0.9 Est GFR ( Amer) > 60 Est GFR (Non-Af Amer) > 60 POC Glucose (mg/dL) Random Glucose 117 H Hemoglobin A1c Calcium 9.1 Magnesium 2.0 Total Bilirubin 0.7 AST 24 ALT 28 Alkaline Phosphatase 50 Lactate Dehydrogenase 536 Total Creatine Kinase 210 Troponin I < 0.01 NT-Pro-B Natriuret Pep 229 Total Protein 7.6 Albumin 4.1 Globulin 3.5 Albumin/Globulin Ratio 1.1 Triglycerides Cholesterol LDL Cholesterol Direct HDL Cholesterol TSH 3rd Generation Urine Color Urine Appearance Urine pH Ur Specific [place] Urine Protein Urine Glucose (UA) Urine Ketones Urine Blood Urine Nitrate Urine Bilirubin Urine Urobilinogen Ur Leukocyte Esterase Urine RBC Urine WBC Ur Epithelial Cells Urine Bacteria 09/22/18 09/22/18 09/22/18 10:20 10:20 10:20 WBC RBC Hgb Hct MCV MCH MCHC RDW Plt Count MPV Neut % (Auto) Lymph % (Auto) [place] % (Auto) Eos % (Auto) Baso % (Auto) Lymph # (Auto) [place] # (Auto) Eos # (Auto) Baso # (Auto) Absolute Neuts (auto) PT INR APTT Sodium Potassium Chloride Carbon Dioxide Anion Gap BUN Creatinine Est GFR ( Amer) Est GFR (Non-Af Amer) POC Glucose (mg/dL) Random Glucose Hemoglobin A1c 6.8 H Calcium Magnesium Total Bilirubin AST ALT Alkaline Phosphatase Lactate Dehydrogenase Total Creatine Kinase Troponin I NT-Pro-B Natriuret Pep Total Protein Albumin Globulin Albumin/Globulin Ratio Triglycerides 131 Cholesterol 142 LDL Cholesterol Direct 81 HDL Cholesterol 29 TSH 3rd Generation 1.15 Urine Color Urine Appearance Urine pH Ur Specific [place] Urine Protein Urine Glucose (UA) Urine Ketones Urine Blood Urine Nitrate Urine Bilirubin Urine Urobilinogen Ur Leukocyte Esterase Urine RBC Urine WBC Ur Epithelial Cells Urine Bacteria 09/22/18 09/22/18 09/23/18 10:23 11:00 07:15 WBC 6.3 RBC 4.95 Hgb 14.7 Hct 45.5 MCV 91.9 MCH 29.7 MCHC 32.3 RDW 13.4 Plt Count 170 MPV 12.2 H Neut % (Auto) 59.0 Lymph % (Auto) 22.6 [place] % (Auto) 13.3 H Eos % (Auto) 4.3 Baso % (Auto) 0.8 Lymph # (Auto) 1.4 [place] # (Auto) 0.8 H Eos # (Auto) 0.3 Baso # (Auto) 0.05 Absolute Neuts (auto) 3.69 PT INR APTT Sodium Potassium Chloride Carbon Dioxide Anion Gap BUN Creatinine Est GFR ( Amer) Est GFR (Non-Af Amer) POC Glucose (mg/dL) 160 H Random Glucose Hemoglobin A1c Calcium Magnesium Total Bilirubin AST ALT Alkaline Phosphatase Lactate Dehydrogenase Total Creatine Kinase Troponin I NT-Pro-B Natriuret Pep Total Protein Albumin Globulin Albumin/Globulin Ratio Triglycerides Cholesterol LDL Cholesterol Direct HDL Cholesterol TSH 3rd Generation Urine Color Yellow Urine Appearance Clear Urine pH 7.5 Ur Specific [place] 1.015 Urine Protein Negative Urine Glucose (UA) Negative Urine Ketones Negative Urine Blood Negative Urine Nitrate Negative Urine Bilirubin Negative Urine Urobilinogen 0.2 Ur Leukocyte Esterase Trace H Urine RBC 0 - 2 Urine WBC 2 - 5 Ur Epithelial Cells 0 - 2 Urine Bacteria Mod 09/23/18 07:15 WBC RBC Hgb Hct MCV MCH MCHC RDW Plt Count MPV Neut % (Auto) Lymph % (Auto) [place] % (Auto) Eos % (Auto) Baso % (Auto) Lymph # (Auto) [place] # (Auto) Eos # (Auto) Baso # (Auto) Absolute Neuts (auto) PT INR APTT Sodium 138 Potassium 3.9 Chloride 98 Carbon Dioxide 32 Anion Gap 12 BUN 17 Creatinine 1.0 Est GFR ( Amer) > 60 Est GFR (Non-Af Amer) > 60 POC Glucose (mg/dL) Random Glucose 131 H Hemoglobin A1c Calcium 9.0 Magnesium Total Bilirubin 1.0 AST 26 ALT 24 Alkaline Phosphatase 51 Lactate Dehydrogenase Total Creatine Kinase Troponin I NT-Pro-B Natriuret Pep Total Protein 7.8 Albumin 3.8 Globulin 4.0 Albumin/Globulin Ratio 1.0 L Triglycerides Cholesterol LDL Cholesterol Direct HDL Cholesterol TSH 3rd Generation Urine Color Urine Appearance Urine pH Ur Specific [place] Urine Protein Urine Glucose (UA) Urine Ketones Urine Blood Urine Nitrate Urine Bilirubin Urine Urobilinogen Ur Leukocyte Esterase Urine RBC Urine WBC Ur Epithelial Cells Urine Bacteria Assessment & Plan - Assessment and Plan (Free Text) Plan: Headache likely seocndary HTN Urgency and inadequate BP control -BP: 190/90 upon ED presentation -lower adequately -home meds for BP -Head CT 09/22/18 10:07 IMPRESSION: 1. Nonspecific lucencies are seen at the left basal ganglia and external capsule potentially reflecting chronic white matter disease or small chronic infarcts. Follow-up MRI is advised to exclude potential acute or subacute infarcts. 2. Limited chronic microangiopathy reflecting age-related neuro degenerative changes appropriate for the patient's stated age. -no focal sensory or motor defects -counselled on weight loss, possible bariatric surgery and need for improvement of BP control <Atul Mcmanus - Last Filed: 09/23/18 15:45> Meds - Medications Medications: Current Medications Acetaminophen (Tylenol 325mg Tab) 650 mg PO Q6H PRN PRN Reason: Pain, Mild (1-3) Aspirin (Ecotrin) 81 mg PO DAILY [facility] Last Admin: 09/23/18 09:41 Dose: 81 mg Atorvastatin Calcium (Lipitor) 40 mg PO DIN [facility] Last Admin: 09/22/18 18:02 Dose: 40 mg Carvedilol (Coreg) 25 mg PO BID [facility] Last Admin: 09/23/18 09:41 Dose: 25 mg Enoxaparin Sodium (Lovenox) 40 mg SC DAILY [facility]; Protocol Last Admin: 09/23/18 09:41 Dose: 40 mg Furosemide (Lasix) 40 mg IVP Q12 [facility] Last Admin: 09/23/18 09:42 Dose: 40 mg Hydralazine HCl (Apresoline) 5 mg IVP Q4H PRN PRN Reason: Systolic >150 Last Admin: 09/23/18 06:31 Dose: 5 mg Lisinopril (Zestril) 20 mg PO DAILY [facility] Last Admin: 09/23/18 09:41 Dose: 20 mg Pantoprazole Sodium (Protonix Ec Tab) 40 mg PO 0600 [facility] Last Admin: 09/23/18 05:13 Dose: 40 mg Spironolactone (Aldactone) 25 mg PO BID [facility] Last Admin: 09/23/18 09:41 Dose: 25 mg Results - Vital Signs Recent Vital Signs: Last Vital Signs Temp 97.4 F L 09/23/18 06:00 Pulse 64 09/23/18 14:00 Resp 20 09/23/18 06:00 BP 125/78 09/23/18 13:30 Pulse Ox 93 L 09/23/18 06:00 - Labs Result Diagrams: 09/23/18 07:15 09/23/18 07:15 Labs: Laboratory Results - last 24 hr 09/22/18 09/22/18 09/22/18 10:20 10:20 10:20 WBC RBC Hgb Hct MCV MCH MCHC RDW Plt Count MPV Neut % (Auto) Lymph % (Auto) [place] % (Auto) Eos % (Auto) Baso % (Auto) Lymph # (Auto) [place] # (Auto) Eos # (Auto) Baso # (Auto) Absolute Neuts (auto) Sodium Potassium Chloride Carbon Dioxide Anion Gap BUN Creatinine Est GFR ( Amer) Est GFR (Non-Af Amer) POC Glucose (mg/dL) Random Glucose Hemoglobin A1c 6.8 H Calcium Total Bilirubin AST ALT Alkaline Phosphatase Total Protein Albumin Globulin Albumin/Globulin Ratio Triglycerides 131 Cholesterol 142 LDL Cholesterol Direct 81 HDL Cholesterol 29 TSH 3rd Generation 1.15 09/22/18 09/23/18 09/23/18 10:23 07:15 07:15 WBC 6.3 RBC 4.95 Hgb 14.7 Hct 45.5 MCV 91.9 MCH 29.7 MCHC 32.3 RDW 13.4 Plt Count 170 MPV 12.2 H Neut % (Auto) 59.0 Lymph % (Auto) 22.6 [place] % (Auto) 13.3 H Eos % (Auto) 4.3 Baso % (Auto) 0.8 Lymph # (Auto) 1.4 [place] # (Auto) 0.8 H Eos # (Auto) 0.3 Baso # (Auto) 0.05 Absolute Neuts (auto) 3.69 Sodium 138 Potassium 3.9 Chloride 98 Carbon Dioxide 32 Anion Gap 12 BUN 17 Creatinine 1.0 Est GFR ( Amer) > 60 Est GFR (Non-Af Amer) > 60 POC Glucose (mg/dL) 160 H Random Glucose 131 H Hemoglobin A1c Calcium 9.0 Total Bilirubin 1.0 AST 26 ALT 24 Alkaline Phosphatase 51 Total Protein 7.8 Albumin 3.8 Globulin 4.0 Albumin/Globulin Ratio 1.0 L Triglycerides Cholesterol LDL Cholesterol Direct HDL Cholesterol TSH 3rd Generation Assessment & Plan - Assessment and Plan (Free Text) Plan: All medical record entries made by the Resident were at my direction and personally dictated by me. I have reviewed the chart and agree that the record accurately reflects my personal performance of the history, physical exam, medical decision making, and the department course for this patient. I have also personally directed, reviewed, and agree with the discharge instructions and disposition. Mr Candelaria is a 58 yr old male who is morbidly obese, with refractory htn. He has a normal neurological exam and continues to have increased bp. Plan: 1. Bariatric surgery would be helpful. NO further neurological recommendations. Dr. Mcmanus neurology
[2018-09-23] MEDS: Enoxaparin 40 mg Syringe SC SCH (09:41)
[2018-09-23 13:30] VITALS: BP 125/78
--- NOTE | 2018-09-23 14:55 | CP.PCM.PCO ---
Physician Communication Note - Physician Communication Note Physician Communication Note: Patient's presentation not likely due to acute stroke
[2018-09-23 15:29] VITALS: PULSE 64
--- NOTE | 2018-09-23 16:47 | US ---
HISTORY: Leg pain and swelling. Evaluate for DVT PHYSICIAN(S): Luke Bourne MD. TECHNIQUE: Duplex sonography and color-flow Doppler with graded compression were used to evaluate the deep venous systems of both lower extremities. The exam is very limited by body habitus and edema. The tibial veins are adequately seen FINDINGS: The visualized deep venous systems of both lower extremities are sonographically normal and compressible. Normal wave forms and augmentation are seen. There is no sonographic evidence for deep venous thrombosis in the visualized segments of both lower extremities. IMPRESSION: No sonographic evidence for deep venous thrombosis in the visualized segments of both lower extremities. Very limited study
--- NOTE | 2018-09-23 17:26 | CARD ---
APPROVED REPORT Date of service: 09/23/2018 EXAM: Two-dimensional and M-mode echocardiogram with Doppler and color Doppler. INDICATION Dyspnea Congestive Heart Failure 2D DIMENSIONS Left Atrium (2D)4.4 (1.6-4.0cm)IVSd1.6 (0.7-1.1cm) LVDd5.2 (3.9-5.9cm)PWd1.3 (0.7-1.1cm) M-Mode DIMENSIONS Aortic Root2.90 (2.2-3.7cm)Aortic Cusp Exc.1.60 (1.5-2.0cm) Aortic Valve AoV Peak Ekktteat377.0cm/Beryl Peak GR.11mmHg Mitral Valve E/A ratio0.0 TDI E/Lateral E'0.0E/Medial E'0.0 Tricuspid Valve TR Peak [id number] Peak Gr.5mmHg [id number] LEFT VENTRICLE The Left Ventricle is moderately dilated. There is mild to moderate concentric left ventricular hypertrophy. The systolic function is moderately impaired. endocardial Border not well visulized. Definity Contrast Used. possioble EF-35% There is Moderate global hypokinesis of the left ventricle. Transmitral Doppler flow pattern is Grade II-pseudonormal filling dynamics. No left ventricle thrombus noted on this study. There is no ventricular septal defect visualized. There is no left ventricular aneurysm. There is no mass noted in the left ventricle. RIGHT VENTRICLE The right ventricle is normal size. There is normal right ventricular wall thickness. The right ventricular systolic function is normal. There is a pacemaker lead in the right ventricle. ATRIA The left atrium is moderately dilated. The right atrium size is normal. There is a catheter/pacemaker lead seen in the right atrium. The interatrial septum is intact with no evidence for an atrial septal defect. AORTIC VALVE The aortic valve is thickened but opens well. The aortic valve is not well visualized. There is trace aortic regurgitation. There is no aortic valvular stenosis. There is no aortic valvular vegetation. MITRAL VALVE The mitral valve is not well visualized. The mitral valve is thickened but opens well. Mitral regurgitation is trace. There is no mitral valve stenosis. There is no evidence of mitral valve prolapse. TRICUSPID VALVE The tricuspid valve is not well visualized. The tricuspid valve leaflets are thickened , but open well. There is trace tricuspid regurgitation. There is no tricuspid valve stenosis. There is no tricuspid valve prolapse or vegetation. PULMONIC VALVE The pulmonic valve is not well visualized. <Conclusion> TDS secondary to Increase body Habitus. Derfinity Contrast Agent used to assess LVfx. Possible EF-35%. Dilated LV/LA PPM/AICD lead noted in RA/RV No significant regurgitant or stenotic Valvular diz noted. consider Muga scan to Assess LV and RV EF%.
--- NOTE | 2018-09-23 17:40 | CP.PCM.DIS ---
Provider - Provider Date of Admission: 09/22/18 12:33 Attending physician: Scott Castañeda MD Primary care physician: Mike Orantes MD Consults: 09/22/18 15:06 Neurology Consult Routine Comment: Consulting Provider: Harley Burns Consulting Physician: Harley Burns Reason for Consult: Headache and CT head w/ old infarcts; no prior hx stroke; no hx FND 09/22/18 16:20 Consult [Physician Consult] Routine Comment: Consulting Provider: Shivam Martinez Consulting Physician: Shivam Martinez Reason for Consult: chf 09/22/18 17:56 Inpatient PPA TE[employer]ER Core Measures Referral Routine Comment: Physician Instructions: Reason For Exam: EVALUATION Transition In Care/Readmission Reduction Routine Comment: Physician Instructions: Reason For Exam: EVALUATION Time Spent in preparation of Discharge (in minutes): 45 Diagnosis - Discharge Diagnosis (1) Obstructive sleep apnea Status: Acute (2) Headache Status: Acute (3) CHF (congestive heart failure) Status: Chronic Hospital Course - Lab Results Lab Results: Most Recent Lab Values WBC 6.3 10^3/uL (4.5-11.0) 09/23/18 07:15 RBC 4.95 10^6/uL (3.5-6.1) 09/23/18 07:15 Hgb 14.7 g/dL (14.0-18.0) 09/23/18 07:15 Hct 45.5 % (42.0-52.0) 09/23/18 07:15 MCV 91.9 fl (80.0-105.0) 09/23/18 07:15 MCH 29.7 pg (25.0-35.0) 09/23/18 07:15 MCHC 32.3 g/dl (31.0-37.0) 09/23/18 07:15 RDW 13.4 % (11.5-14.5) 09/23/18 07:15 Plt Count 170 10^3/uL (120.0-450.0) 09/23/18 07:15 MPV 12.2 fl (7.0-11.0) H 09/23/18 07:15 Neut % (Auto) 59.0 % (50.0-68.0) 09/23/18 07:15 Lymph % (Auto) 22.6 % (22.0-35.0) 09/23/18 07:15 [place] % (Auto) 13.3 % (1.0-6.0) H 09/23/18 07:15 Eos % (Auto) 4.3 % (1.5-5.0) 09/23/18 07:15 Baso % (Auto) 0.8 % (0.0-3.0) 09/23/18 07:15 Lymph # (Auto) 1.4 (1.2-3.4) 09/23/18 07:15 [place] # (Auto) 0.8 (0.1-0.6) H 09/23/18 07:15 Eos # (Auto) 0.3 (0.0-0.7) 09/23/18 07:15 Baso # (Auto) 0.05 K/mm3 (0.0-2.0) 09/23/18 07:15 Absolute Neuts (auto) 3.69 (1.4-6.5) 09/23/18 07:15 PT 12.4 SECONDS (9.4-12.5) 09/22/18 10:20 INR 1.10 09/22/18 10:20 APTT 34.3 Seconds (26.9-38.3) 09/22/18 10:20 Sodium 138 mmol/L (132-148) 09/23/18 07:15 Potassium 3.9 mmol/L (3.6-5.0) 09/23/18 07:15 Chloride 98 mmol/L (98-107) 09/23/18 07:15 Carbon Dioxide 32 mmol/L (21-33) 09/23/18 07:15 Anion Gap 12 (10-20) 09/23/18 07:15 BUN 17 mg/dL (7-21) 09/23/18 07:15 Creatinine 1.0 mg/dl (0.8-1.5) 09/23/18 07:15 Est GFR ( Amer) > 60 09/23/18 07:15 Est GFR (Non-Af Amer) > 60 09/23/18 07:15 POC Glucose (mg/dL) 160 mg/dL (65-110) H 09/22/18 10:23 Random Glucose 131 mg/dL (70-110) H 09/23/18 07:15 Hemoglobin A1c 6.8 % (4.2-6.5) H 09/22/18 10:20 Calcium 9.0 mg/dL (8.4-10.5) 09/23/18 07:15 Magnesium 2.0 mg/dL (1.7-2.2) 09/22/18 10:20 Total Bilirubin 1.0 mg/dL (0.2-1.3) 09/23/18 07:15 AST 26 U/L (17-59) 09/23/18 07:15 ALT 24 U/L (7-56) 09/23/18 07:15 Alkaline Phosphatase 51 U/L (38-126) 09/23/18 07:15 Lactate Dehydrogenase 536 U/L (333-699) 09/22/18 10:20 Total Creatine Kinase 210 U/L (35-230) 09/22/18 10:20 Troponin I < 0.01 ng/mL 09/22/18 10:20 NT-Pro-B Natriuret Pep 229 pg/mL (0-450) 09/22/18 10:20 Total Protein 7.8 g/dL (5.8-8.3) 09/23/18 07:15 Albumin 3.8 g/dL (3.0-4.8) 09/23/18 07:15 Globulin 4.0 gm/dL 09/23/18 07:15 Albumin/Globulin Ratio 1.0 (1.1-1.8) L 09/23/18 07:15 Triglycerides 131 mg/dL (35-160) 09/22/18 10:20 Cholesterol 142 mg/dL (130-200) 09/22/18 10:20 LDL Cholesterol Direct 81 mg/dL (0-129) 09/22/18 10:20 HDL Cholesterol 29 mg/dL (29-60) 09/22/18 10:20 TSH 3rd Generation 1.15 mIU/mL (0.46-4.68) 09/22/18 10:20 Urine Color Yellow (YELLOW) 09/22/18 11:00 Urine Appearance Clear (CLEAR) 09/22/18 11:00 Urine pH 7.5 (4.7-8.0) 09/22/18 11:00 Ur Specific [place] 1.015 (1.005-1.035) 09/22/18 11:00 Urine Protein Negative mg/dL (<30 mg/dL) 09/22/18 11:00 Urine Glucose (UA) Negative mg/dL (NEGATIVE) 09/22/18 11:00 Urine Ketones Negative mg/dL (NEGATIVE) 09/22/18 11:00 Urine Blood Negative (NEGATIVE) 09/22/18 11:00 Urine Nitrate Negative (NEGATIVE) 09/22/18 11:00 Urine Bilirubin Negative (NEGATIVE) 09/22/18 11:00 Urine Urobilinogen 0.2 E.U./dL (<1 E.U./dL) 09/22/18 11:00 Ur Leukocyte Esterase Trace [place]/uL (NEGATIVE) H 09/22/18 11:00 Urine RBC 0 - 2 /hpf (0-2) 09/22/18 11:00 Urine WBC 2 - 5 /hpf (0-6) 09/22/18 11:00 Ur Epithelial Cells 0 - 2 /hpf (0-5) 09/22/18 11:00 Urine Bacteria Mod /hpf (NONE) 09/22/18 11:00 - Hospital Course Hospital Course: David Ramirez DO PGY1 - Internal Medicine Director Of Digital Marketing - Hospitalist DC Summary: Patient is a 58-year-old male with a past medical history of CAD, CHF, status post AICD placement, obstructive sleep apnea, presenting to [facility] on 09/22 With complaints of headache ongoing for the past 3 to 4 days. Paper ports that headache is a pounding sensation originating in the front of his head progressing to the back of his head denies any nausea, vomiting, no lightheadedness, dizziness, blurry vision. He does not have any complaints of weakness or sensory alteration, does not report any slurred speech. He does report some shortness of breath at this time, however upon further evaluation the patient reports that his shortness of breath is at baseline. CT Head performed in the ED which showed non specific lucencies client service representative of chronic infarcts, NIHSS evaluation score was 0. Neurology was consulted who recommended weight loss and BP management. Given extensive cardiac history, cardiology was consulted. Patient BP was observed on home BP rx. Medications were increased by cardiology, and Echocardiogram showed EF was decreased to 35%. Patient was notified to follow up w/ his laboratory tester Dr. Abhishek Masterson. Patient was also provided support for bipap use at home and told to follow up w/ his assembler musical equipment to obtain repeat sleep study/ requalify for bipap machine. Patient tolerated bipap well overnight. Morning prior to discharge, patient was seen and evaluated at bedside. No acute events reported overnight Patient reported no fevers, chills, chest pain, abd pain, n/v/d/c, urinary discomfort. Headaches were significantly improved following AM. Discharge medications, and discharge plans were reviewed with patient Patient verbalized understanding of discharge plan as written below Patient was seen, evaluated, and discussed w/ attending physician Dr. Castañeda prior to discharge - Date & Time of H&P Date of H&P: 09/22/18 Time of H&P: 15:15 Discharge Exam - Head Exam Head Exam: ATRAUMATIC, NORMAL INSPECTION, NORMOCEPHALIC - Eye Exam Eye Exam: EOMI, PERRL. absent: Scleral icterus - ENT Exam ENT Exam: Normal Exam - Respiratory Exam Respiratory Exam: Clear to PA & Lateral, NORMAL BREATHING PATTERN. absent: Wheezes - Cardiovascular Exam Cardiovascular Exam: RRR. absent: Tachycardia - GI/Abdominal Exam GI & Abdominal Exam: Soft. absent: Tenderness - Extremities Exam Extremities exam: pedal edema, pedal pulses present - Neurological Exam Neurological exam: Alert, CN II-XII Intact, Oriented x3 Additional comments: 5/5 gross strength ue and le BL - Psychiatric Exam Psychiatric exam: Normal Affect, Normal Mood - Skin Skin Exam: Dry, Intact, Warm Discharge Plan - Discharge Medications Prescriptions: Aspirin [Ecotrin] 81 mg PO DAILY #30 tabec Atorvastatin [Lipitor] 40 mg PO DIN #30 tab Carvedilol [Coreg] 25 mg PO BID #60 tab Furosemide [Lasix] 40 mg PO BID #60 tab Lisinopril [Zestril] 20 mg PO DAILY #30 tab Spironolactone [Aldactone] 25 mg PO BID #60 tab - Follow Up Plan Condition: GOOD Disposition: HOME/ ROUTINE Patient education suggested?: Yes Instructions: Heart Failure, Adult (DC), Obstructive Sleep Apnea, Adult (DC) Additional Instructions: You were admitted for uncontrolled blood pressure Please follow up with your primary doctor, Dr. Mike Orantes within 3-5 days of discharge Please follow up with your lung doctor doctor, Dr. Awa Godwin within 3-5 days of discharge Please follow up with your primary doctor, Dr. Abhishek Masterson within 3-5 days of discharge Your ejection fraction is 35% please immediately schedule follow up with your laboratory tester Please provide your laboratory tester a copy of the echocardiogram report we have given you Please have a sleep study performed by your assembler musical equipment All of your discharge medications were delivered to your bedside Please take the following medications as prescribed: Lisinopril 20mg Daily Lipitor 40mg Daily Aspirin 81mg Daily Lasix 40mg Twice Daily Aldactone 25mg Twice Daily Carvedilol 25mg Twice Daily Please STOP taking your old medication (please note new dosage change as above): Lisinopril 5mg Daily Lasix 20mg Daily In regards to your CHF: Please check your weight daily; if you have more than 2 lbs of weight gain in a day, or more than 5 lbs in a week, please contact your primary care physician immediately Please avoid drinking excessive fluids, please drink less than 1 liter of fluids daily Please eat a low fat NO salt diet Please partake in an exercise program for >30 min/ day 3-5 days/ week If you begin experiencing worsening symptoms, or new onset symptoms arise; please go to the nearest emergency department immediately Referrals: Abhishek Masterson MD [Staff Provider] - Awa Godwin MD [Medical Doctor] - Mike Orantes MD [Primary Care Provider] -
== END 2018-09-23 18:14 | disposition home or self-care (01) ==
LOC: ED 09:40 → ERH 12:33 → 3RNO 13:56
PROVIDERS: ADMIT Internal Medicine; ATTEND Internal Medicine
DX: I16.0 Hypertensive urgency (principal); R51 Headache; I11.0 Hypertensive heart disease with heart failure; I50.9 Heart failure, unspecified; I42.0 Dilated cardiomyopathy; I25.10 Atherosclerotic heart disease of native coronary artery without angina pectoris; G47.33 Obstructive sleep apnea (adult) (pediatric); E66.01 Morbid (severe) obesity due to excess calories; Z68.43 Body mass index [BMI] 50.0-59.9, adult; E78.5 Hyperlipidemia, unspecified; Z95.810 Presence of automatic (implantable) cardiac defibrillator; Z86.74 Personal history of sudden cardiac arrest
CPT/HCPCS: 36415; 70450; 71045; 80053; 80061; 81001; 82550; 82948; 83036; 83615; 83735; 83880; 84443; 84484; 85025; 85610; 85730; 87086; 87206; 93005; 93306; 93880; 93970; 94660; 96372; 96374; 96375; 96376; 97116; 97161; 99285; G0378; G8978; G8979; J0360; J1650; J1940; Q9957